=== PATIENT | female | born 1970 | race Caucasian/White ===

== ENCOUNTER 2020-05-06 05:21 | Emergency (ER) | payer MEDICAID, SELFPAY ==
[~2020-05-06] VITALS: Ht 160 cm; Wt 76.2 kg
[~2020-05-06 05:21] MED LIST: ANT12.5 PO; CIPRO500 MG PO; COL100 PO; FER300 PO; GLU500 PO; LAC PO; LEV500 PO; NORCO1 TA2 PO; PRI20 PO; THERAGRAN-M1 TA4 PO; VITC PO
[2020-05-06 05:24] VITALS: Ht 160 cm; Wt 76.2 kg
[2020-05-06 07:52] LABS: microscopic required? YES; urine erythrocyte 3+ (NEGATIVE)
[2020-05-06 09:12] VITALS: BP 100/61
== END 2020-05-06 09:12 | disposition home or self-care (01) ==
LOC: ED 05:21
PROVIDERS: Emergency Medicine
DX: U07.1 COVID-19 (principal); B34.9 Viral infection, unspecified; N39.0 Urinary tract infection, site not specified; Z86.2 Personal history of diseases of the blood and blood-forming organs and certain disorders involving the immune mechanism
CPT/HCPCS: 87804; U0003